=== PATIENT | male | born 1980 | race Caucasian/White ===

== ENCOUNTER 2018-05-12 05:17 | Day surgery (SDC) | payer MEDICAID ==
[2018-05-08 11:29] LABS: BASOPHILS # (AUTO) 0.1 X10'3 (0-0.2); BASOPHILS % (AUTO) 1.4 % (0-1); EOSINOPHILS # (AUTO) 0.4 X10'3 (0-0.9); EOSINOPHILS % (AUTO) 4.2 % (0-6); LYMPHOCYTES # (AUTO) 1.9 X10'3 (1.1-4.8); LYMPHOCYTES % (AUTO) 22.2 % (21-51); MEAN CORPUSCULAR HEMOGLOBIN 31.6 PG (27.0-31.0); MEAN CORPUSCULAR HGB CONC 33.6 g/dL (33.0-36.5); MEAN CORPUSCULAR VOLUME 94.1 FL (78-98); MEAN PLATELET VOLUME 7.1 FL (7.4-10.4); MONOCYTES # (AUTO) 0.6 X10'3 (0-0.9); MONOCYTES % (AUTO) 6.6 % (2-12); NEUTROPHILS # (AUTO) 5.6 X10'3 (1.8-7.7); NEUTROPHILS % (AUTO) 65.6 % (42-75); PRE OP HEMATOCRIT 44.8 % (42.0-52.0); PRE OP PLATELET COUNT 320 X10'3 (140-440); RED BLOOD COUNT 4.76 X10'6 (4.70-6.10); RED CELL DISTRIBUTION WIDTH 13.6 % (11.5-14.5)
[2018-05-08 11:43] LABS: ALBUMIN 4.2 G/DL (3.4-5.0); ALKALINE PHOSPHATASE 36 IU/L (46-116); BLOOD UREA NITROGEN 12 MG/DL (7-18); BUN/CREATININE RATIO 12.2 (5.4-32.0); CALCIUM 9.2 MG/DL (8.5-10.1); CHLORIDE 104 MMOL/L (99-107); CREATININE 0.98 MG/DL (0.60-1.10); PRE OP ALT 24 U/L (30-65); PRE OP ANION GAP 8 (8-16); PRE OP AST 20 U/L (10-37); PRE OP BILIRUB, TOTAL 0.7 MG/DL (0.0-1.0); PRE OP GLUCOSE 87 MG/DL (70-104); PRE OP POTASSIUM 4.2 MMOL/L (3.4-5.1); PRE OP SODIUM 140 MMOL/L (135-145); TOTAL CARBON DIOXIDE 28.2 MMOL/L (24-32); TOTAL PROTEIN 8.5 G/DL (6.4-8.2); eGFR 87 ML/MIN
[~2018-05-12] VITALS: Ht 172.7 cm; Wt 79.2 kg
[~2018-05-12 05:17] MED LIST: NO HOME MEDS; ringers solution, lacted 1,000 ML IV SCH
[2018-05-12] MEDS ORDERED: famotidine 20mg tablet PO ONE (05:30)
[2018-05-12] MEDS ORDERED: cefazolin/dext.iso 2gm/50ml 50 ML IV ONE (05:30)
[2018-05-12] MEDS ORDERED: LIDOcaine 1% (10mg/ml) 2ml vial ONE (05:42)
[2018-05-12 06:00] VITALS: BP 123/93
[2018-05-12] MEDS ORDERED: ondansetron/PF 4mg/2ml inj ONE (06:27)
[2018-05-12] MEDS ORDERED: ondansetron/PF 4mg/2ml inj IV ONE (06:27)
[2018-05-12] MEDS ORDERED: BUPIVAcaine/PF 2.5mg/ml (0.25%) 10ml vial ONE (06:47)
[2018-05-12] MEDS ORDERED: LIDOcaine 1% 30ml preserv. free vial ONE (07:26)
[2018-05-12] MEDS ORDERED: fentaNYL/PF 50MCG/1 ML 2ML syringe ONE (07:49)
[2018-05-12] MEDS ORDERED: midazolam 2 mg/2 ml injection ONE ×2 (07:50→08:11)
[2018-05-12] MEDS ORDERED: proCHLORperazine 10 MG/2 ml inj IV PRN (08:00)
[2018-05-12] MEDS ORDERED: ondansetron/PF 4mg/2ml inj IV PRN (08:00)
[2018-05-12] MEDS ORDERED: morphine 4 MG/ML inj SYRINge IV PRN ×2 (08:00)
[2018-05-12] MEDS ORDERED: ringers solution, lacted 1,000 ML IV SCH (08:00)
[2018-05-12] MEDS ORDERED: meperidine/PF 25mg/ml syringe IV PRN ×3 (08:00)
[2018-05-12] MEDS ORDERED: LIDOcaine 2% (20mg/ml) 5ml vial ONE (08:15)
[2018-05-12] MEDS ORDERED: propofol inj 20 ML IV ONE (08:15)
[2018-05-12 08:49] VITALS: BP 124/74
--- NOTE | 2018-05-12 08:49 | NUR ---
Received from OR via [facility] , accompanied by Anesthesiologist ZOEY and report given by Anesthesiolgist. PATIENT WITH 20G PIV IN RIGHT UE RUNNING LR AT 100. DENIES PAIN. LEFT HAND AND WRIST DRESSING IS CDI WITH ICE PACK DONNED. MOVES REMAINING 2 FINGERS AND THUMB. + CSM AND CAP REFILL. Addendum: 05/12/18 at 0903 by Dl Garrison RN, RN Amended: Links added.
[2018-05-12 08:59] VITALS: BP 94/79
[2018-05-12 09:04] VITALS: BP 102/62
[2018-05-12 09:14] VITALS: BP 105/75
--- NOTE | 2018-05-12 09:19 | NUR ---
ALL DC CRITERIA HAS BEEN MET. IV TAKEN OUT WITHOUT COMPLICATIONS. ALL INSTRUCTIONS COVERED AND ALL QUESTIONS ANSWERED. DRESSINGS CDI. OUT VIA WHEELCHAIR TO PERSONAL VEHICLE WHERE PATIENT WAS SECURED IN AND DRIVEN HOME BY FAMILY. LEFT WRIST DRESSING REMAINS CDI. MOVES 2 FINGERS AND THUMB WITHOUT DIFFICULTY. Addendum: 05/12/18 at 0932 by Dl Garrison RN, RN Amended: Links added.
== END 2018-05-12 09:19 | disposition home or self-care (01) ==
LOC: PAS 05:17
PROVIDERS: ATTEND Orthopaedic Surgery Hand Surgery
DX: M72.0 Palmar fascial fibromatosis [Dupuytren] (principal); Z72.89 Other problems related to lifestyle; Z87.891 Personal history of nicotine dependence; Z79.899 Other long term (current) drug therapy
CPT/HCPCS: 26123; 36415; 80053; 82948; 85025; A6222; A6449; J0690; J2001; J2250; J2405; J2704; J3010; J3490; J7120

== ENCOUNTER 2020-09-16 08:13 | Emergency (ER) | payer MEDICAID ==
[~2020-09-16] VITALS: Ht 172.7 cm; Wt 76.0 kg
[~2020-09-16 08:13] MED LIST changes: -ringers solution, lacted 1,000 ML IV SCH
[2020-09-16 10:30] VITALS: BP 141/90
== END 2020-09-16 12:53 | disposition home or self-care (01) ==
LOC: ER 08:14
DX: S92.511A Displaced fracture of proximal phalanx of right lesser toe(s), initial encounter for closed fracture (principal); S99.921A Unspecified injury of right foot, initial encounter; Z72.89 Other problems related to lifestyle; W20.8XXA Other cause of strike by thrown, projected or falling object, initial encounter; Y93.89 Activity, other specified; Y92.89 Other specified places as the place of occurrence of the external cause; Y99.8 Other external cause status
CPT/HCPCS: 73660; 99283